=== PATIENT | female | born 1995 | race Caucasian/White ===

== ENCOUNTER 2020-07-12 19:28 | Emergency (ER) | payer OTHER ==
[2020-07-12 19:57] LABS: BILIRUBIN,URINE NEGATIVE (NEGATIVE); GLUCOSE, URINE (UA) NEGATIVE (NEGATIVE); KETONES,URINE (UA) NEGATIVE (NEGATIVE); LEUKOCYTE ESTERASE, URINE NEGATIVE (NEGATIVE); NITRITE,URINE NEGATIVE (NEGATIVE); OCCULT BLOOD,URINE NEGATIVE (NEGATIVE); PH,URINE 7.5 PH (5.0-7.5); PROTEIN,URINE NEGATIVE (NEGATIVE); UROBILINOGEN,URINE 0.2 (NORMAL) E.U./dL (NORMAL)
[2020-07-12 19:58] LABS: BASOPHILS # (AUTO) 0.1 10^3/uL (0.0-0.1); BASOPHILS % (AUTO) 0.3 %; EOSINOPHILS % (AUTO) 0.2 %; HCT - HEMATOCRIT 35.2 % (37.0-47.0); LYMPHOCYTES # (AUTO) 1.5 10^3/uL (1.5-3.5); LYMPHOCYTES % (AUTO) 8.8 %; MEAN CORPUSCULAR HGB CONC 34.1 g/dL (32.0-36.0); MONOCYTES # (AUTO) 0.7 10^3/uL (0.0-1.0); MONOCYTES % (AUTO) 3.9 %; NEUTROPHILS # (AUTO) 14.5 10^3/uL (1.5-6.6); NEUTROPHILS % (AUTO) 86.4 %; PLT - PLATELET COUNT 282 10^3/uL (130-450); RED BLOOD COUNT 3.87 10^6/uL (4.20-5.40); RED CELL DISTRIBUTION WIDTH 12.2 % (12.0-15.0); WHITE BLOOD COUNT 16.8 x10^3/uL (4.8-10.8)
[2020-07-12 19:58] LABS: CLARITY,URINE CLEAR (CLEAR); HCG UR QUAL POSITIVE
[2020-07-12 20:10] LABS: ALBUMIN 4.3 g/dL (3.2-5.5); ALBUMIN/GLOBULIN RATIO 1.5 (1.0-2.2); BILIRUBIN,TOTAL 0.4 mg/dL (0.2-1.0); CALCIUM 8.8 mg/dL (8.5-10.3); CREATININE 0.5 mg/dL (0.4-1.0); POTASSIUM 3.9 mmol/L (3.5-5.0); TOTAL PROTEIN 7.2 g/dL (6.7-8.2)
--- NOTE | 2020-07-12 21:05 | ED Physician Documentation ---
PD HPI ABD PAIN - Stated complaint Stated Complaint: ABD PX - Chief complaint Chief Complaint: Abd Pain - History obtained from History obtained from: Patient - History of Present Illness Timing - onset: Enter time (15:30), Today Timing - details: Abrupt onset Pain level max: 8 Pain level now: 3 Quality: Pain Location: Suprapubic, LLQ Radiation: Other (radiates to entire abdomen) Improved by: Other (nothing) Worsened by: Palpation Associated symptoms: No: Fever, Nausea, Vomiting, Constipation Similar symptoms before: Has not had sx before Recently seen: Not recently seen - Additional information Additional information: c/o sudden onset of cramping abdominal pain, predominantly across lower abdomen, left side more than right. Started suddenly at approximately 3:30 PM today after having intercourse. She then took a test and found that it was unexpectedly positive. She has not been before. LMP 06/11/20 Review of Systems Constitutional: denies: Fever, Chills, Sweats Cardiac: reports: Reviewed and negative Respiratory: reports: Reviewed and negative GI: reports: Abdominal Pain. denies: Abdominal Swelling, Nausea, Vomiting, Constipation, Diarrhea : reports: Dysuria. denies: Frequency, Vaginal bleeding Musculoskeletal: denies: Back pain PD PAST MEDICAL HISTORY - Past Medical History Past Medical History: No - Past Surgical History Other past surgical history: varicose vein repair last year - Present Medications Home Medications: Ambulatory Orders Medication Instructions Recorded Confirmed Dextroamphetamine/Amphetamine 10 mg PO ONCE PRN 07/12/20 07/12/20 [Adderall 10 mg Tablet] Dextroamphetamine/Amphetamine 30 mg PO DAILY 07/12/20 07/12/20 [Adderall Xr 30 mg Capsule] - Allergies Allergies/Adverse Reactions: Allergies Allergy/AdvReac Type Severity Reaction Status Date / Time No Known Drug Allergies Allergy Verified 07/12/20 19:39 - Living Situation Living Arrangement: reports: At home PD ED PE NORMAL - Vitals Vital signs reviewed: Yes - General General: Alert and oriented X 3, No acute distress, Well developed/nourished - Cardiac Cardiac: RRR, No murmur, No gallop, No rub - Respiratory Respiratory: No respiratory distress, Clear bilaterally - Abdomen Abdomen: Soft, Non distended, Other (TTP across lower abdomen, worst in LLQ. no rebound or guarding) - Derm Derm: Normal color, Warm and dry Results - Vitals Vitals: Vital Signs - 24 hr 07/12/20 07/12/20 07/13/20 19:33 23:54 01:08 Temperature 36.8 C 37.2 C 37.0 C Heart Rate 106 H 91 85 Respiratory 16 16 14 Rate Blood Pressure 120/63 133/77 H 111/85 H O2 Saturation 99 100 100 Oxygen O2 Source Room air - Labs Labs: Laboratory Tests 07/12/20 07/12/20 07/12/20 19:40 19:51 19:51 WBC 16.8 H RBC 3.87 L Hgb 12.0 Hct 35.2 L MCV 91.0 MCH 31.0 MCHC 34.1 RDW 12.2 Plt Count 282 MPV 9.0 Neut # (Auto) 14.5 H Lymph # (Auto) 1.5 [place] # (Auto) 0.7 Eos # (Auto) 0.0 Baso # (Auto) 0.1 Absolute Nucleated RBC 0.00 Nucleated RBC % 0.0 Sodium 138 Potassium 3.9 Chloride 104 Carbon Dioxide 26 Anion Gap 8.0 BUN 10 Creatinine 0.5 Estimated GFR (MDRD) 149 Glucose 100 Calcium 8.8 Total Bilirubin 0.4 AST 15 ALT 14 Alkaline Phosphatase 47 Total Protein 7.2 Albumin 4.3 Globulin 2.9 Albumin/Globulin Ratio 1.5 Lipase 26 HCG, Quant Urine Color YELLOW Urine Clarity CLEAR Urine pH 7.5 Ur Specific [place] 1.010 Urine Protein NEGATIVE Urine Glucose (UA) NEGATIVE Urine Ketones NEGATIVE Urine Occult Blood NEGATIVE Urine Nitrite NEGATIVE Urine Bilirubin NEGATIVE Urine Urobilinogen 0.2 (NORMAL) Ur Leukocyte Esterase NEGATIVE Ur Microscopic Review NOT INDICATED Urine Culture Comments NOT INDICATED Urine HCG, Qual POSITIVE Blood Type Blood Type Recheck 07/12/20 07/12/20 07/12/20 19:51 20:56 20:56 WBC RBC Hgb Hct MCV MCH MCHC RDW Plt Count MPV Neut # (Auto) Lymph # (Auto) [place] # (Auto) Eos # (Auto) Baso # (Auto) Absolute Nucleated RBC Nucleated RBC % Sodium Potassium Chloride Carbon Dioxide Anion Gap BUN Creatinine Estimated GFR (MDRD) Glucose Calcium Total Bilirubin AST ALT Alkaline Phosphatase Total Protein Albumin Globulin Albumin/Globulin Ratio Lipase HCG, Quant 324.80 Urine Color Urine Clarity Urine pH Ur Specific [place] Urine Protein Urine Glucose (UA) Urine Ketones Urine Occult Blood Urine Nitrite Urine Bilirubin Urine Urobilinogen Ur Leukocyte Esterase Ur Microscopic Review Urine Culture Comments Urine HCG, Qual Blood Type A POSITIVE Blood Type Recheck A POSITIVE - Rads (name of study) pelvic/TV US Radiology: Prelim report reviewed, See rad report PD MEDICAL DECISION MAKING - ED course Complexity details: reviewed results, re-evaluated patient, considered differential, d/w patient ED course: sudden onset pelvic pain this afternoon following intercourse. HCG quant is 324, no IUP on US. free fluid is visualized on US. On reevaluation, patient appears more comfortable but still c/o ongoing pelvic discomfort. No significant change on reexamination of abdomen (mild TTP across lower abdomen, mostly LLQ; no rebound or guarding). D/W Dr. Barahona, recommends outpatient reevaluation to include repeat HCG quant in 2 days; this can be performed Wednesday if feasible. I discussed this with patient, including test results and the potential for ectopic . I explained the importance of having repeat testing by the end of the day on Wednesday and that if she cannot arrange this in the outpatient setting she should return to the emergency department. I encouraged her to return to the ED at any time she feels her symptoms are worsening. We discussed options for pain medication, and she prefers to take acetaminophen. Departure - Departure Disposition: Home, Self Care Clinical Impression: Pelvic pain during in first trimester, antepartum Condition: Good Instructions: ED Abdominal Pain Rule Out Ectopic Follow-Up: [facility] [Provider Group] Comments: As we discussed, you need to be reevaluated within the next 2 days with another blood tests (hcg level, " hormone" level). Your level tonight was very low which could be due to early . No significant abnormalities were seen on the ultrasound, but no evidence of the was seen, either. An ectopic ("tubal") is still possible and this can best be determined with repeat blood tests and reevaluation by your science writer. Contact your primary care provider Wednesday morning (you can call to [facility] [place]) and tell them of the situation and the recommendation for repeat blood testing. If they cannot reevaluate you by the end of the day Wednesday, return to the emergency department. Also, you should return to the emergency department at any time if your symptoms worsen or if you develop other concerning signs or symptoms such as fever or vaginal bleeding. Discharge Date/Time: 07/13/20 01:12
[2020-07-13] MEDS ORDERED: ACETAMINOPHEN 325 MG TABLET PO STA (00:36)
[2020-07-13 01:09] VITALS: BP 111/85
--- NOTE | 2020-07-13 10:03 | Ultrasound Report ---
PROCEDURE: OB First Trimester INDICATIONS: pelvic pain OUTSIDE/PRIOR DATING DATA: Last menstrual period (LMP): 06/09/2020. LMP-based estimated date of delivery (HARPER): 03/16/2021. First dating scan (date and location): The study. Viable gestation is not found. TECHNIQUE: Real-time scanning was performed of the fetus and maternal pelvic organs, with image documentation. COMPARISON: None. FINDINGS: Embryo: An intrauterine gestation is not seen. Measurement variability in dating: +/- 4 weeks by LMP, +/- 7 days by mean sac diameter (use before 6 weeks gestation if crown-rump length not able to be measured), +/- 5 days by crown-rump length (6-12 weeks gestation). Maternal organs: Ovaries right-sided corpus luteum cyst noted, measuring up to 2.6 cm.. IMPRESSION: An intrauterine gestation is not identified. An ectopic is not found. What is presumed to b e a corpus luteum cyst is seen at the right ovary. Please note that a ectopic has not been entirely excluded by this examination. Please correlate with quantitative beta hCG for whether intrau terine gestation should be seen. Very close clinical follow-up is recommended depending on the clinic al status, and it remains possible that a very early intrauterine gestation could be developing but n ot yet visualized. Reviewed by: Bernabe Huertas MD on 07/13/2020 9:02 AM MONICA Approved by: Bernabe Huertas MD on 07/13/2020 9:02 AM MONICA Station ID: [id number]
--- NOTE | 2020-07-13 10:04 | Ultrasound Report ---
PROCEDURE: OB Transvaginal INDICATIONS: pelvic pain TECHNIQUE: Transvaginal evaluation. COMPARISON: First trimester OB ultrasound same day reviewed. This includes transabdominal scanning.. FINDINGS: Please refer to the dedicated report that combines the transabdominal and transvaginal scanning liste d under first trimester OB ultrasound same day. IMPRESSION: Please refer to the combined report noted above. Reviewed by: Bernabe Huertas MD on 07/13/2020 9:03 AM [facility] Approved by: Bernabe Huertas MD on 07/13/2020 9:03 AM MONICA Station ID: [id number]
== END 2020-07-13 01:12 | disposition home or self-care (01) ==
LOC: ED 19:28
DX: O99.891 Other specified diseases and conditions complicating pregnancy (principal); R10.2 Pelvic and perineal pain; Z3A.00 Weeks of gestation of pregnancy not specified
CPT/HCPCS: 36415; 76801; 76817; 80053; 81003; 81025; 83690; 84702; 85025; 86900; 86901; 99284; A9270; 81001; 87086